=== PATIENT | male | born 1985 | race Caucasian/White ===

== ENCOUNTER 2018-03-20 13:42 | Emergency (ER) | payer OTHER ==
--- NOTE | 2018-03-20 14:49 | ED ---
Lower Extremity - HPI Summary HPI Summary: 32-year-old male presents with right hip pain today. He states he hurt his hip when shoveling. He states he is able to put minimal weight on the area. No numbness or tingling. No other injury. Has taken ibuprofen for his pain. No loss of bowel or bladder or saddle anesthesia. No fevers. Has a history of sciatica states that it feels different. Denies any other symptoms. No pain or swelling to his legs. - History of Current Complaint Chief Complaint: EDHipPelvisInjury Stated Complaint: RIGHT HIP PAIN Time Seen by Provider: 03/20/18 14:15 Pain Intensity: 2 - Allergies/Home Medications Allergies/Adverse Reactions: Allergies Allergy/AdvReac Type Severity Reaction Status Date / Time No Known Allergies Allergy Verified 03/20/18 13:55 PMH/Surg Hx/FS Hx/Imm Hx Endocrine/Hematology History: Denies: Hx Anticoagulant Therapy Cardiovascular History: Denies: Hx Myocardial Infarction Infectious Disease History: No Infectious Disease History: Denies: Traveled Outside the [place] in Last 30 Days - Family History Known Family History: Positive: Hypertension - Social History Alcohol Use: None Substance Use Type: Reports: None Smoking Status (MU): Never Smoked Tobacco Review of Systems Negative: Fever Negative: Chest Pain Negative: Shortness Of Breath Positive: Myalgia - right hip pain All Other Systems Reviewed And Are Negative: Yes Physical Exam Triage Information Reviewed: Yes Vital Signs On Initial Exam: Initial Vitals Temp Pulse Resp BP Pulse Ox 97.4 F 87 18 143/91 97 03/20/18 13:55 03/20/18 13:55 03/20/18 13:55 03/20/18 13:55 03/20/18 13:55 Vital Signs Reviewed: Yes Appearance: Positive: Well-Appearing Skin: Positive: Warm, Dry Head/Face: Positive: Normal Head/Face Inspection Eyes: Positive: Normal, Conjunctiva Clear ENT: Positive: Pharynx normal Respiratory/Lung Sounds: Positive: Clear to Auscultation, Breath Sounds Present Cardiovascular: Positive: Normal, RRR Musculoskeletal: Positive: Limited @ - right hip pain, Other - tenderness right hip, good pulses, sensation grossly intact Neurological: Positive: Normal Psychiatric: Positive: Normal Diagnostics - Vital Signs Vital Signs Temp Pulse Resp BP Pulse Ox 03/20/18 14:33 97.9 F 86 14 157/102 99 03/20/18 13:55 97.4 F 87 18 143/91 97 - Laboratory Lab Statement: Any lab studies that have been ordered have been reviewed, and results considered in the medical decision making process. - Radiology hip Radiology Interpretation Completed By: Radiologist Summary of Radiographic Findings: IMPRESSION: #. Negative for fracture. #. 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 Correlate for. restricted range of motion. Lower Extremity Course/Dx - Course Course Of Treatment: 32-year-old male presents with right hip pain today. He states he hurt his hip when shoveling. He states he is able to put minimal weight on the area. No numbness or tingling. No other injury. Has taken ibuprofen for his pain. No loss of bowel or bladder or saddle anesthesia. No fevers. Has a history of sciatica states that it feels different. Denies any other symptoms. No pain or swelling to his legs. On exam tenderness of her right hip. Positive jose eduardo Test. Neurovascular intact. X-ray shows no fx. will discharge with crutches and have follow up with ortho. patient understand and agrees with plan. - Diagnoses Differential Diagnosis/HQI/PQRI: Positive: Fracture (Closed), Sprain, Strain Provider Diagnoses: Right hip pain Discharge - Sign-Out/Discharge Documenting (check all that apply): Patient Departure - Discharge Plan Condition: Good Disposition: HOME Patient Education Materials: Hip Pain (ED) Referrals: Sharath Spence MD [Primary Care Provider] - Von Espinosa MD [Medical Doctor] - Additional Instructions: Ice tyenlol or ibuprofen every 6 hours for pain Follow up with ortho Return to ED if develop or any new or worsening symptoms - Billing Disposition and Condition Condition: GOOD Disposition: Home
[2018-03-20 15:36] VITALS: BP 158/98
== END 2018-03-20 15:34 | disposition home or self-care (01) ==
LOC: ED 13:42
DX: M25.551 Pain in right hip (principal); X58.XXXA Exposure to other specified factors, initial encounter; Y93.H1 Activity, digging, shoveling and raking; Y92.9 Unspecified place or not applicable
CPT/HCPCS: 99281

== ENCOUNTER 2018-09-12 11:49 | Emergency (ER) | payer BC, OTHER ==
[2018-09-12 12:07] VITALS: BP 155/83
--- NOTE | 2018-09-12 12:15 | UC ---
Abdominal Pain Male HPI - HPI Summary HPI Summary: 2 days ago after a large BM patient noticed he had a protruding area rectally. no bleeding ---seems to be getting bigger painful to sit on - History of Current Complaint Chief Complaint: UCGI Stated Complaint: PERSONAL Time Seen by Provider: 09/12/18 12:08 Hx Obtained From: Patient Onset/Duration: Sudden Onset, Lasting Days - 2 Timing: Constant Pain Intensity: 4 Pain Scale Used: 0-10 Numeric Location: Other - rectally Radiates: No Aggravating Factor(s): Other - coughing and sitting down Alleviating Factor(s): Nothing - Allergies/Home Medications Allergies/Adverse Reactions: Allergies Allergy/AdvReac Type Severity Reaction Status Date / Time No Known Allergies Allergy Verified 09/12/18 12:07 PMH/Surg Hx/FS Hx/Imm Hx Previously Healthy: Yes Other History Of: Negative For: Anticoagulant Therapy - Surgical History Surgical History: None - Family History Known Family History: Positive: Hypertension - Social History Occupation: Employed Full-time Lives: With Family - and 2 children Alcohol Use: None Substance Use Type: None Smoking Status (MU): Never Smoked Tobacco Review of Systems All Other Systems Reviewed And Are Negative: Yes Constitutional: Positive: Negative Skin: Positive: Negative Eyes: Positive: Negative ENT: Positive: Negative Respiratory: Positive: Negative Cardiovascular: Positive: Negative Gastrointestinal: Positive: Other - rectal pain Genitourinary: Positive: Negative Motor: Positive: Negative Neurovascular: Positive: Negative Musculoskeletal: Positive: Negative Neurological: Positive: Negative Psychological: Positive: Negative Is Patient Immunocompromised?: No Physical Exam Triage Information Reviewed: Yes Appearance: Well-Appearing, No Pain Distress, Well-Nourished Vital Signs: Initial Vital Signs Temp 98.0 F 09/12/18 12:03 Pulse 89 09/12/18 12:03 Resp 18 09/12/18 12:03 BP 155/83 09/12/18 12:03 Pulse Ox 98 09/12/18 12:03 Vital Signs Reviewed: Yes Eye Exam: Normal Eyes: Positive: Conjunctiva Clear ENT Exam: Normal ENT: Positive: Normal ENT inspection, Hearing grossly normal. Negative: Trismus , Muffled voice, Hoarse voice Dental Exam: Normal Neck exam: Normal Neck: Positive: Supple, Nontender, No Lymphadenopathy Respiratory Exam: Normal Respiratory: Positive: Chest non-tender, Lungs clear, Normal breath sounds, No respiratory distress, No accessory muscle use Cardiovascular Exam: Normal Cardiovascular: Positive: RRR, No Murmur, Pulses Normal, Brisk Capillary Refill Abdominal Exam: Normal Abdomen Description: Positive: Nontender, No Organomegaly, Soft, Other: - hemerroid noted Musculoskeletal Exam: Normal Musculoskeletal: Positive: Strength Intact, ROM Intact, No Edema Neurological Exam: Normal Neurological: Positive: Alert, Muscle Tone Normal Psychological Exam: Normal Skin Exam: Normal Abd Pain Male Course/Dx - Course Course Of Treatment: lidocaine jelly, prep h, Metamucil, increase fluids follow with general surgeon this week - Differential Dx/Clinical Impression Provider Diagnosis: Acute hemorrhoid Discharge - Sign-Out/Discharge Documenting (check all that apply): Patient Departure All imaging exams completed and their final reports reviewed: No Studies - Discharge Plan Condition: Stable Disposition: HOME Prescriptions: Lidocaine 4% GEL* [Topicaine 4% GEL*] 1 applic TOPICAL SEE INSTRUCTIONS PRN #1 tube PRN Reason: Pain Psyllium Husk/Aspartame [Metamucil Fiber Singles Packet] 3.4 gm PO QAM #30 [email or web address] Patient Education Materials: Hydrocortisone/Lidocaine (Into the rectum), Hemorrhoids (ED) Referrals: Dk Vela MD [Medical Doctor] - 2 Days - Billing Disposition and Condition Condition: STABLE Disposition: Home - Attestation Statements Provider Attestation: I was available for consult. This patient was seen by the SRINATH. The patient was not presented to, seen by, or examined by me. -Aurea
[2018-09-12] MEDS ORDERED: Lidocaine 2% VISCOUS* 15 ML UDC ONE (12:25)
== END 2018-09-12 12:40 | disposition home or self-care (01) ==
LOC: UCEAST 11:49
DX: K64.8 Other hemorrhoids (principal)
CPT/HCPCS: 99212; G0463